=== PATIENT | female | born 1960 | race Caucasian/White ===

== ENCOUNTER 2020-07-09 08:01 | Emergency (ER) | payer OTHER ==
[2020-07-09 08:16] VITALS: BP 145/98; PULSE 98; TEMP 97.9; BMI 32.2
== END 2020-07-09 11:17 | disposition home or self-care (01) ==
LOC: JER 08:01
DX: R05 Cough (principal)
CPT/HCPCS: 71046-TC-FY; 99283-25

== ENCOUNTER 2023-12-11 16:42 | Observation (INO) | payer OTHER ==
[2023-12-11 18:12] LABS: BASO % 0.6 % (0-2.0); HEMATOCRIT 40.2 % (32.4-45.2); HEMOGLOBIN 13.3 GM/dL (10.7-15.3); MCH 28.9 pg (25.7-33.7); MEAN CELL VOLUME 87.6 fl (80-96); MONO % 5.6 % (3.8-10.2); NEUT % 47.8 % (42.8-82.8); PLATELET COUNT 303 10^3/uL (134-434); RBC 4.59 M/mm3 (3.60-5.2); RDW 13.6 % (11.6-15.6); WHITE BLOOD COUNT 7.9 K/mm3 (4.0-10.0)
[2023-12-11 18:30] LABS: CALCIUM 8.8 mg/dL (8.5-10.1)
[2023-12-11 18:31] LABS: ALBUMIN 3.7 g/dl (3.4-5.0); BLOOD UREA NITROGEN 20.8 mg/dL (7-18)
[2023-12-11 18:36] LABS: BILIRUBIN,TOTAL 0.4 mg/dL (0.2-1); TOT PROT 7.4 g/dl (6.4-8.2)
[2023-12-11] MEDS ORDERED: ACETAMINOPHEN 325 MG TABLET (FP) ONE (19:06)
[2023-12-11] MEDS: ACETAMINOPHEN 325 MG TABLET (FP) PO ONE (19:20)
[2023-12-11 19:25] LABS: HIV INTERPRETATION NEGATIVE (NEGATIVE)
[2023-12-11] MEDS ORDERED: ASPIRIN 81 MG CHEWABLE TABLETS ONE (20:46)
[2023-12-11] MEDS: ASPIRIN 81 MG CHEWABLE TABLETS PO ONE (21:01)
[2023-12-11] MEDS ORDERED: LABETALOL HCL 20 MG/4 ML VIAL IVPUSH PRN (22:31)
[2023-12-11] MEDS ORDERED: amLODIPine BESYLATE 5 MG TABLET (FP) ONE (22:40)
[2023-12-11] MEDS ORDERED: ATORVASTATIN CA 40 MG TABLET (FP) ONE (22:41)
[2023-12-11] MEDS ORDERED: HYDROCHLOROTHIAZIDE 25 MG TABLET (FP) ONE (22:41)
[2023-12-11] MEDS ORDERED: LABETALOL HCL 20 MG/4 ML VIAL ONE (22:41)
[2023-12-11] MEDS: LABETALOL HCL 20 MG/4 ML VIAL IVPUSH ONE (22:44)
[2023-12-11] MEDS: ATORVASTATIN CA 40 MG TABLET (FP) PO SCH (22:45)
[2023-12-11] MEDS: amLODIPine BESYLATE 5 MG TABLET (FP) PO ONE (22:45)
[2023-12-11] MEDS: HYDROCHLOROTHIAZIDE 25 MG TABLET (FP) PO ONE (22:45)
[2023-12-12 07:16] LABS: HEMATOCRIT 41.2 % (32.4-45.2); HEMOGLOBIN 13.3 GM/dL (10.7-15.3); MCH 28.5 pg (25.7-33.7); MCHC 32.4 g/dl (32.0-36.0); MEAN CELL VOLUME 88.2 fl (80-96); MEAN PLT VOLUME 8.4 fl (7.5-11.1); PLATELET COUNT 289 10^3/uL (134-434); RBC 4.67 M/mm3 (3.60-5.2); RDW 13.5 % (11.6-15.6); WHITE BLOOD COUNT 7.2 K/mm3 (4.0-10.0)
[2023-12-12 07:31] LABS: POTASSIUM 3.9 mmol/L (3.5-5.1)
[2023-12-12 07:37] LABS: ALBUMIN 3.5 g/dl (3.4-5.0); BLOOD UREA NITROGEN 17.9 mg/dL (7-18); CALCIUM 9.6 mg/dL (8.5-10.1)
[2023-12-12 07:40] LABS: CREATININE 0.7 mg/dL (0.55-1.3)
[2023-12-12 07:42] LABS: BILIRUBIN,TOTAL 0.5 mg/dL (0.2-1); TOT PROT 6.9 g/dl (6.4-8.2)
[2023-12-12] MEDS: ENOXAPARIN NA (PORCINE) 40 MG/0.4 ML DISP.SYRIN SQ SCH (09:07)
[2023-12-12] MEDS: LOSARTAN POTASSIUM 50 MG TABLET PO SCH (09:07)
[2023-12-12] MEDS: ASPIRIN COATED 81 MG TABLET.EC PO SCH (09:07)
[2023-12-12] MEDS: HYDROCHLOROTHIAZIDE 25 MG TABLET (FP) PO SCH (09:07)
[2023-12-12] MEDS: amLODIPine BESYLATE 5 MG TABLET (FP) PO SCH (09:08)
[2023-12-12 15:17] VITALS: BP 130/86; PULSE 95; RESP 16; TEMP 98.2; BMI 33.8
== END 2023-12-12 17:16 | disposition home or self-care (01) ==
LOC: JER 16:42 → JERBED 19:23 → J4W 12-12 12:08
PROVIDERS: ADMIT Internal Medicine; ATTEND Internal Medicine
PROC: 3E023GC Introduction of Other Therapeutic Substance into Muscle, Percutaneous Approach (ICD-10-PCS; principal; 2023-12-11)
PROC: 3E033GC Introduction of Other Therapeutic Substance into Peripheral Vein, Percutaneous Approach (ICD-10-PCS; 2023-12-11)
DX: R07.89 Other chest pain (principal); I16.0 Hypertensive urgency; E78.5 Hyperlipidemia, unspecified; R73.03 Prediabetes
CPT/HCPCS: 0241U-QW; 36415; 71046-TC-FY; 80053; 84484; 85025; 85027; 85379; 86803; 87389; 93005; 93010; 93306-TC; 96372; 96374; 99285-25; G0378